=== PATIENT | male | born 1980 | race American Indian/Alaskan Native ===

== ENCOUNTER 2018-10-31 11:33 | Emergency (ER) | payer SELFPAY ==
--- NOTE | 2018-10-31 11:59 | Emergency Department Report ---
Blank Doc - Documentation Documentation: This is a 38-year-old male that presents with HTN. Stated that he takes Norva sc. 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 Denies any symptoms. This initial assessment/diagnostic orders/clinical plan/treatment(s) is/are subject to change based on patient's health status, clinical progression and re- assessment by fellow clinical providers in the ED. Further treatment and workup at subsequent clinical providers discretion. Patient/guardians urged not to elope from the ED as their condition may be serious if not clinically assessed and managed. Initial orders include: 1- Patient sent to [facility] for further evaluation and treatment
[2018-10-31] MEDS ORDERED: CATAPRES PO ONE (12:31)
--- NOTE | 2018-10-31 12:35 | Emergency Department Report ---
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 He was not able to pass the physical due to his blood pressure. Patient does have a history of hypertension and has been compliant with his Norvasc 10 mg by mouth daily. 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 Patient has no chest pain no shortness of breath and no headache at this time Past medical history hypertension Surgical history none Home medications Norvasc 10 mg daily -: Gradual - Related Data Previous Rx's Medication Instructions Recorded Last Taken Type amLODIPine [Norvasc] 5 mg PO DAILY #30 tab 10/10/13 Unknown Rx hydrALAZINE [Apresoline TAB] 25 mg PO Q8HR #90 tab 10/31/18 Unknown Rx Allergies Allergy/AdvReac Type Severity Reaction Status Date / Time No Known Allergies Allergy Unverified 10/10/13 08:36 ED Review of Systems ROS: Stated complaint: HBP Other details as noted in HPI Comment: All other systems reviewed and negative Constitutional: denies: chills Eyes: denies: eye pain ENT: denies: ear pain Respiratory: denies: cough Cardiovascular: as per HPI. denies: palpitations Endocrine: denies: flushing Gastrointestinal: denies: nausea Genitourinary: denies: urgency Musculoskeletal: denies: back pain Skin: denies: lesions Neurological: denies: headache Psychiatric: denies: anxiety Hematological/Lymphatic: denies: easy bleeding ED Past Medical Hx - Past Medical History Hx Hypertension: Yes - Surgical History Past Surgical History?: No - Family History Family history: no significant - Social History Smoking Status: Never Smoker Substance Use Type: None - Medications Home Medications: Home Medications Medication Instructions Recorded Confirmed Last Taken Type amLODIPine [Norvasc] 5 mg PO DAILY #30 tab 10/10/13 Unknown Rx hydrALAZINE [Apresoline TAB] 25 mg PO Q8HR #90 tab 10/31/18 Unknown Rx ED Physical Exam - General Limitations: No Limitations General appearance: alert, in no apparent distress - Head Head exam: Present: atraumatic, normocephalic - Eye Eye exam: Present: normal appearance, PERRL - ENT ENT exam: Present: mucous membranes moist - Neck Neck exam: Present: normal inspection - Respiratory Respiratory exam: Present: normal lung sounds bilaterally - Cardiovascular Cardiovascular Exam: Present: regular rate, other (hr 90 on exam) - GI/Abdominal GI/Abdominal exam: Present: soft, normal bowel sounds - Extremities Exam Extremities exam: Present: normal inspection, full ROM - Back Exam Back exam: Present: normal inspection, full ROM - Neurological Exam Neurological exam: Present: alert, oriented X3, CN II-XII intact, normal gait - Psychiatric Psychiatric exam: Present: normal affect, normal mood - Skin Skin exam: Present: warm, dry, intact ED Course Vital Signs 10/31/18 11:57 Temperature 98.5 F Pulse Rate 104 H Respiratory 18 Rate Blood Pressure 171/101 O2 Sat by Pulse 99 Oximetry ED Recheck MDM - Core Measures Measure Exclusions: not indicated - Differential Diagnosis Prescription Refill(s) - Medical Decision Making Patient has been medicated with clonidine today for his blood pressure. He is being discharged home with adding a second agent. Patient has been advised to follow-up with Dr. Brennan who does DOT physical examination in [place]. Vital Signs 10/31/18 11:57 Temperature 98.5 F Pulse Rate 104 H Respiratory 18 Rate Blood Pressure 171/101 O2 Sat by Pulse 99 Oximetry Critical care attestation.: If time is entered above; I have spent that time in minutes in the direct care of this critically ill patient, excluding procedure time. ED Disposition Clinical Impression: Hypertension Disposition: DC-01 TO HOME OR SELFCARE Is pt being admited?: No Does the pt Need Aspirin: No Condition: Stable Instructions: Hypertension (ED) Additional Instructions: follow up with Dr Sal Brennan in [place], [place] he specializes in DOT physicals low fat low salt diet hydrate well with water exercise daily med as ordered today continue your [facility] Referrals: BROOKLYNN BRENNAN MD [Referring] - 3-5 Days Time of Disposition: 12:33
[2018-10-31 12:45] VITALS: BP 163/105
== END 2018-10-31 12:59 | disposition home or self-care (01) ==
LOC: ED 11:33
DX: I10 Essential (primary) hypertension (principal)
CPT/HCPCS: 99282